=== PATIENT | female | born 2000 | race Two or more races ===

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

== ENCOUNTER 2022-03-16 22:50 | Emergency (ER) | payer OTHER, SELFPAY ==
[2022-03-16 23:02] VITALS: BP 140/79; PULSE 114; RESP 18; TEMP 38.8; O2SAT 100; BMI 31.7
--- NOTE | 2022-03-16 23:05 | ECG_ITS ---
Test Reason : WEAKNESS Blood Pressure : / mmHG Vent. Rate : 118 BPM Atrial Rate : 118 BPM P-R Int : 162 ms QRS Dur : 074 ms QT Int : 292 ms P-R-T Axes : 044 029 038 degrees QTc Int : 409 ms Sinus tachycardia Otherwise normal ECG No previous ECGs available Referred By: Generic ED Physician Electronically Signed By:MITZI HAYDEN
[2022-03-16] MEDS: Ibuprofen 600 MG TABLET PO (23:11)
[2022-03-16] MEDS: Acetaminophen 325 MG TABLET 650 MG PO (23:11)
[2022-03-16 23:38] LABS: MANUAL DIFF FLAG NO
[2022-03-16 23:40] LABS: Basophils Percent Auto 0.3 % (0-2); Eosinophils Percent Auto 0.4 % (0-4); Hematocrit 38.5 % (37.0-47.0); Imm Gran Abs Auto 0.02 X10*3/uL (0.00-0.03); Imm Gran Pct Auto 0.2 % (0.0-0.4); Lymphocytes Absolute Auto 1.5 X10*3/uL (1.2-4.9); Mean Corpuscular HGB Conc 31.2 g/dl (31.0-35.0); Mean Corpuscular Hemoglobin 24.4 pg (27.0-33.0); Mean Corpuscular Volume 78.4 fL (80.0-98.0); Mean Platelet Volume 9.8 fL (9.4-12.3); Monocytes Absolute Auto 0.6 X10*3/uL (0.1-1.2); Monocytes Percent Auto 5.5 % (2-11); Neutrophils Absolute Auto 9.2 x10*3/uL (2.0-8.3); Neutrophils Percent Auto 80.6 % (45-73); Platelet Count 356 X10*3/uL (160-400); Red Blood Count 4.91 X10*6/uL (4.20-5.50); Red Cell Distribution Width 18.6 % (11.0-16.0); White Blood Count 11.4 X10*3/uL (4.8-10.8)
[2022-03-16 23:41] LABS: Appearance Urine Cloudy; Color Urine Yellow; Glucose Urine UA Negative (Negative); Leukocyte Esterase Urine Moderate (2+) (Negative); Nitrite Urine Negative (Negative); PH 5.5 (5.0-9.0); Specific Gravity - Urine 1.025 (1.005-1.025); UMIC TRIGGER UACC YES; Urine Blood Large (3+) (Negative); Urine Ketones Trace mg/dL (Negative); Urine Protein Trace mg/dL (Neg-Trace)
[2022-03-16 23:43] LABS: UPreg QC Valid YES; Urine Pregnancy NEGATIVE (NEGATIVE)
[2022-03-16 23:46] LABS: Bacteria Urine Trace (None Seen); Hyaline Casts Urine 0-2 /LPF (0-2); RBC Urine >20 /HPF (0-2); UACC Culture Trigger YES; WBC Urine 21-50 /HPF (0-5)
[2022-03-16 23:52] LABS: Lactic Acid 0.9 mmol/L (0.5-2.0)
[2022-03-16 23:56] LABS: Alanine Aminotransferase 26 U/L (0-31); Albumin Level 4.9 g/dL (3.5-5.0); Alkaline Phosphatase 92 U/L (39-117); Anion Gap 18 (12-20); Aspartate Amino Transferase 27 U/L (5-31); Bilirubin Direct 0.3 mg/dL (0.0-0.5); Bilirubin Total 0.7 mg/dL (0.0-1.0); Blood Urea Nitrogen 9 mg/dL (9-16); COVID-19 Test Negative (Negative); Calcium 9.7 mg/dL (8.4-10.2); Carbon Dioxide 22 mmol/L (22-29); Chloride 103 mmol/L (96-108); Creatinine Clr Calc Pharmacy 100.8; Estimated Glomerular Filt Rate > 60; Glucose Random 104 mg/dL (60-115); IDNOW Serial# 16C4AD1C; IDNOW Serial# 9DB6401D; Influenza A Negative (Negative); Influenza B2 Negative (Negative); Lipase 28 U/L (8-78); Potassium 3.9 mmol/L (3.3-5.1); Sodium 139 mmol/L (135-145); Total Protein 8.4 g/dL (6.5-8.0)
[2022-03-17 00:06] LABS: Troponin-I High Sensitivity 5.2 ng/L (<3.5-17.0)
[2022-03-17 00:09] VITALS: BP 124/72; PULSE 120; TEMP 38.4; O2SAT 99
[2022-03-17 00:29] LABS: Strep A Nucleic Acid Negative (Negative)
== END 2022-03-17 02:11 | disposition left against medical advice (07) ==
PROVIDERS: Emergency Medicine; Emergency Provider Emergency Medicine
DX: M79.10 Myalgia, unspecified site (principal); R51.9 Headache, unspecified; R53.1 Weakness; Z79.899 Other long term (current) drug therapy; Z20.822 Contact with and (suspected) exposure to COVID-19
CPT/HCPCS: 36415; 80053; 81001; 81025; 82248; 83605; 83690; 84484; 85025; 87040; 87086; 87502; 87635; 87651; 93005; 99284